=== PATIENT | male | born 1940 | race Caucasian/White ===

== ENCOUNTER 2023-09-11 06:54 | Day surgery (SDC) | payer MEDICARE, SELFPAY ==
[2023-09-11] VITALS (19 sets, daily range): BP systolic 122–164; BP diastolic 56–94; BMI 24.6
[2023-09-11 07:35] LABS: Hematocrit 41.1 % (39.0-52.0); Mean Corp Hgb Conc. 34.1 g/dL (33.0-37.0); Mean Corpuscular Volume 93.8 fL (80.0-94.0); Mean Platelet Volume 9.8 fL (7.4-10.4); Platelet Count 335 10^3/uL (130-400); Red Blood Cell Count 4.38 10^6/uL (4.70-6.10); Red Cell Dist. Width 12.7 % (11.5-14.5); White Blood Cell Count 8.1 10^3/uL (4.8-10.8)
[2023-09-11 07:51] LABS: Blood Urea Nitrogen 21 mg/dl (9-20); Calcium 9.3 mg/dl (8.4-10.2); Carbon Dioxide 30 mmol/L (22-30); Chloride 105 mmol/L (98-107); Glucose 93 mg/dl (70-99); Potassium 4.1 mmol/L (3.5-5.1); Sodium 139 mmol/L (135-145); eGFR > 60.00
[2023-09-11 07:54] LABS: INR 1.06; PT 13.7 Sec (11.4-14.6)
[2023-09-11 07:55] LABS: APTT 37.1 Sec (23.4-35.0)
--- NOTE | 2023-09-11 08:32 | W.SUR.PREOP ---
Pre-Operative Surgical Note
-
I have examined this patient prior to the performance of the scheduled procedure.
The patient's condition is unchanged from the time of the current History and
Physical and the patient is able to undergo the scheduled procedure.
--- NOTE | 2023-09-11 09:22 | W.SUR.POST ---
Surgical Immediate Post Op
Note
Pre Op Diagnosis: PAD
Post Op Diagnosis: PAD
Procedure Performed: Diagnostic RLE angiogram
Primary Surgeon: Radha
Anesthesia: local and sedation
Estimated Blood Loss: <2cc
Fluids: see anesthesia flow sheet
Drains/Shunts: same
Specimens/Cultures: none
Doppler/Duplex/Angio (Y/N): Y
Complications: none
Operative Findings: No endovascular options at this time
[2023-09-11 10:32] LABS: AST (SGOT) 30 U/L (17-59); Alkaline Phosphatase 101 U/L (38-126); Direct Bilirubin 0.6 mg/dl (0.0-0.4); Total Bilirubin 0.6 mg/dl (0.2-1.3)
[2023-09-11 11:09] LABS: ALT (SGPT) 22 U/L (0-50)
--- NOTE | 2023-09-11 14:32 | OR.RPT ---
Operative Report
Operative Report
Date of Operation: 09/11/2023
Pre Op Diagnosis: Critical limb ischemia right lower extremity
Post Op Diagnosis: Critical limb ischemia right lower extremity
Procedure:
1.) Selective catheterization second-order lower extremity artery
2.) Diagnostic aortobiiliac arteriogram
3.) Diagnostic right lower extremity arteriogram
4.) Ultrasound-guided percutaneous access of the left common femoral artery
Surgeon: Kb Garcia III, MD
Whip Operator: Satnam Price MD PGY-1
Anesthesia: Sedation with local
Complications: None
Estimated Blood Loss: Minimal
History and Indications for Procedure: 83-year-old male with critical limb threatening ischemia of the right lower extremity manifested by a nonhealing right third toe ulcer
Procedure in Detail: Rony Steel was correctly identified and placed supine on the operating table. After adequate induction of anesthesia the bilateral groins were prepped and draped in the usual sterile fashion. A timeout was performed with the
nursing and anesthesia staff confirming the patient's identity as well as the nature and laterality of the procedure.
The left common femoral artery was identified under ultrasound guidance. The artery was patent but heavy luminal calcified plaque was identified. The superior and inferior aspects of the femoral head were identified with radiographic guidance and
marked at the skin level. The proposed puncture site was infiltrated with local anesthesia. We saved a copy of the ultrasound image to the medical record. Under ultrasound guidance we accessed the left common femoral artery with a micropuncture
needle and upsized to a 5 Fr sheath over a Bentson wire. The wire and a ShephPoly Adaptive hook flush catheter were advanced into the distal abdominal aorta and a diagnostic aorto-biiliac arteriogram was performed:
AORTO-ILIAC ARTERIOGRAM:
Aorta: Diffusely heavily calcified. No significant stenosis identified
Right common iliac artery: Heavily calcified. Calcified plaque in the mid common iliac artery contributing to a moderate to high-grade stenosis
Right external iliac artery: Patent, heavily calcified
Left common iliac artery: Patent stent. Heavily calcified
Left external iliac artery: Patent
Under roadmap guidance using a Glidewire and the ShepherIAT-Auto hook catheter we selected the right common iliac artery and then the external iliac artery. A catheter was tracked up and over the aortic bifurcation and placed in the distal external iliac
artery. A diagnostic right lower extremity arteriogram was then performed which demonstrated the following:
RIGHT LOWER EXTREMITY:
Common femoral artery: Patent. Bulky heavily calcified plaque in the common femoral artery contributing to significant stenosis.
Profunda femoral artery: Patent with no stenosis identified
Superficial femoral artery: Patent in the proximal and mid segments with scattered areas of heavily calcified bulky luminal plaque contributing to areas of high-grade stenosis and sluggish flow throughout. Distal segment appears occluded.
Popliteal artery: Popliteal artery above the knee fills via profunda femoral collaterals. Heavily calcified and diseased above-knee segment. Patent behind the knee. Below the knee segment patent with no stenosis identified
Anterior tibial artery: Patent. Slow flow lagging behind the posterior tibial and peroneal arteries. Appears to occlude at the ankle with no flow to the dorsalis pedis artery.
Tibioperoneal trunk: Patent with no stenosis identified
Peroneal artery: Patent
Posterior tibial artery: Dominant tibial artery runoff. Continues across the ankle to form plantar branches in the foot
Satisfied with this diagnostic result we concluded the procedure.
The patient tolerated the procedure well and was taken to the recovery area in stable condition.
Attestation: I was present and responsible for the entire procedure.
Signed:
Kb Garcia III, MD
[facility]
[phone] (ojmb)
== END 2023-09-11 15:00 | disposition home or self-care (01) ==
LOC: CATH 06:54
PROVIDERS: ATTENDING PHYSICIAN Surgery Vascular Surgery; FAMILY PHYSICIAN Internal Medicine; OTHER PHYSICIAN Nuclear Medicine Nuclear Cardiology
DX: I70.235 Atherosclerosis of native arteries of right leg with ulceration of other part of foot (principal); L97.519 Non-pressure chronic ulcer of other part of right foot with unspecified severity; Z95.820 Peripheral vascular angioplasty status with implants and grafts
CPT/HCPCS: 36246; 75625; 75716; 76937; 80053; 82248; 85027; 85610; 85730; 86850; 86900; 86901; 93970; C1894; Q9967

== ENCOUNTER → 2023-10-28 15:24 | Outpatient (REF) | payer MEDICARE, SELFPAY | LOC: HWRAD 15:24 | PROVIDERS: ATTENDING PHYSICIAN Internal Medicine | DX: S91.309A Unspecified open wound, unspecified foot, initial encounter (principal) | CPT/HCPCS: 73630 ==

== ENCOUNTER → 2023-12-30 07:00 | Outpatient (REF) | payer MEDICARE, SELFPAY | LOC: HWRCS 07:00 | PROVIDERS: ATTENDING PHYSICIAN Nuclear Medicine Nuclear Cardiology; FAMILY PHYSICIAN Internal Medicine | DX: I42.9 Cardiomyopathy, unspecified (principal) | CPT/HCPCS: 93306 ==

== ENCOUNTER → 2024-03-17 08:23 | Outpatient (REF) | payer MEDICARE, SELFPAY | LOC: RAD 08:23 | PROVIDERS: ATTENDING PHYSICIAN Surgery Vascular Surgery | DX: I73.9 Peripheral vascular disease, unspecified (principal) | CPT/HCPCS: 93922; 93978 ==

== ENCOUNTER → 2024-08-23 08:56 | Outpatient (REF) | payer MEDICARE, SELFPAY | LOC: RAD 08:56 | PROVIDERS: ATTENDING PHYSICIAN Internal Medicine | DX: R10.9 Unspecified abdominal pain (principal); R14.0 Abdominal distension (gaseous) | CPT/HCPCS: 71101; 72072; 76700 ==

== ENCOUNTER → 2024-10-10 12:46 | Outpatient (REF) | payer MEDICARE, SELFPAY | LOC: HWRAD 12:46 | PROVIDERS: ATTENDING PHYSICIAN Nurse Practitioner Adult Health | DX: R30.9 Painful micturition, unspecified (principal); R31.29 Other microscopic hematuria | CPT/HCPCS: 76770 ==

== ENCOUNTER → 2024-11-29 08:23 | Outpatient (REF) | payer MEDICARE, SELFPAY | LOC: DHVS 08:23 | PROVIDERS: ATTENDING PHYSICIAN Surgery Vascular Surgery; FAMILY PHYSICIAN Internal Medicine | DX: I73.9 Peripheral vascular disease, unspecified (principal) | CPT/HCPCS: 93922 ==

== ENCOUNTER 2025-05-04 09:48 | Emergency (ER) | payer MEDICARE, SELFPAY ==
[2025-05-04 09:56] VITALS: BP 169/66
[2025-05-04 10:00] VITALS: BP 162/86; BMI 23.7
--- NOTE | 2025-05-04 10:41 | ED.GENMED ---
History of Present Illness
<Matthew Clinton MD, Resident - Last Filed: 05/04/25 11:48>
General
Chief Complaint: Musculo-Skeletal Complaint
Source: patient
Exam Limitations: none
Time Seen by Provider: 05/04/25 09:51
History of Present Illness
History of Present Illness:
Patient is an 85-year-old male who has been having intermittent tingling bilaterally in both his hands more so on the right since 1 month. The sensation has been constant as has not gotten progressively worse. he does not have numbness or
tingling in his bilateral lower extremities. 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 No associated weakness of the extremities. No fever, chills, nausea, vomiting, palpitations, slurred speech,
facial drooping, inability to ambulate, weight loss, neck pain. Ex-smoker quit 20 years ago, occasionally drinks alcohol. Works out about 5 times a week.has had a previous medical history of myocardial infarction, takes atorvastatin and aspirin.
Past History
<Matthew Clinton MD, Resident - Last Filed: 05/04/25 11:48>
Past History
ED Past Medical History: None
ED Past Surgical History: None
Social History
Tobacco: Non-smoker
Alcohol: None
Drug: None
Personal:
Living: with family
Phy Exam
<Matthew Clinton MD, Resident - Last Filed: 05/04/25 11:48>
General Physical Exam
General Presentation: well appearing
General Skin: warm
General Habitus: normal
General Mental: alert
Cardiovascular Exam
Cardiovascular Exam: regular rate/rhythm, no edema, no murmur and normal peripheral pulses
Pulmonary Exam
Pulmonary Exam: lungs clear and no respiratory distress
Gastrointestinal Exam
Gastrointestinal Exam: normal bowel sounds, non tender, soft and non distended
Neurological Exam
Neurological Exam: alert and oriented x3
Musculoskeletal Exam
Musculoskeletal Exam: full ROM
Course
<Matthew Clinton MD, Resident - Last Filed: 05/04/25 11:48>
Orders/Labs/Results
Orders:
Orders
05/04/25 10:37
Electrocardiogram (*1) Urgent
Reason for Study: TIA/Stroke
EKG- Treatment ONCE
05/04/25 11:01
CBC/With Diff [Complete Blood Count/With Diff] Urgent
CMP [Comprehensive Metabolic Panel] Urgent
Troponin I Urgent
Abnormal Lab Results
05/04/25
11:01
RBC 4.16 L 10^6/uL
(4.70-6.10)
MCV 96.6 H fL
(80.0-94.0)
MCH 32.0 H pg
(27.0-31.0)
MPV 10.6 H fL
(7.4-10.4)
Absolute Monos (auto) 0.7 H 10^3/uL
(0.1-0.6)
Carbon Dioxide 31 H mmol/L
(22-30)
BUN 22 H mg/dl
(9-20)
05/04/25 11:01
05/04/25 11:01
Vital Signs
Initial and Last Documented VS:
Initial Vital Signs
BP
169/66
05/04/25 09:56
Last Documented Vital Signs
Temp Pulse Resp BP Pulse Ox
98.9 F 76 19 162/86 99
05/04/25 10:00 05/04/25 10:00 05/04/25 10:00 05/04/25 10:00 05/04/25 10:43
<Kasi Resendiz, DO - Last Filed: 05/04/25 10:46>
Orders/Labs/Results
Orders:
Orders
05/04/25 10:37
Electrocardiogram (*1) Urgent
Reason for Study: TIA/Stroke
EKG- Treatment ONCE
05/04/25 11:01
CBC/With Diff [Complete Blood Count/With Diff] Urgent
CMP [Comprehensive Metabolic Panel] Urgent
Troponin I Urgent
Abnormal Lab Results
05/04/25
11:01
RBC 4.16 L 10^6/uL
(4.70-6.10)
MCV 96.6 H fL
(80.0-94.0)
MCH 32.0 H pg
(27.0-31.0)
MPV 10.6 H fL
(7.4-10.4)
Absolute Monos (auto) 0.7 H 10^3/uL
(0.1-0.6)
Carbon Dioxide 31 H mmol/L
(22-30)
BUN 22 H mg/dl
(9-20)
05/04/25 11:01
05/04/25 11:01
Vital Signs
Initial and Last Documented VS:
Initial Vital Signs
BP
169/66
05/04/25 09:56
Last Documented Vital Signs
Temp Pulse Resp BP Pulse Ox
98.9 F 76 19 162/86 99
05/04/25 10:00 05/04/25 10:00 05/04/25 10:00 05/04/25 10:00 05/04/25 10:43
<Matthew Clinton MD, Resident - Last Filed: 05/04/25 11:48>
MDM/Problems Addressed
Differential Diagnosis Includes:
Acute coronary syndrome, Transient ischemic attack, stroke, ID, cervical radiculopathy, carpal tunnel syndrome
MDM/Problems Addressed:
- CBC: unremarkable
- CMP: unremarkable
- EKG: sinus rhythm with sinus arrhythmia
- troponin I- within normal limits
- Will discharge patient home. F/u with pcp within 5 days.
<Matthew Clinton MD, Resident - Last Filed: 05/04/25 11:48>
*Pulse Oximetry
SaO2: 99
Oxygen Mode of Delivery: Room air
Patient hypoxic: no
*Critical Care Note
Total Time (30-74mins, 75-104mins- exclusive of procedures): Not Applicable
ED Attending Note
<Matthew Clinton MD, Resident - Last Filed: 05/04/25 11:48>
-
Portions of this chart may have been created with voice recognition software.� Occasional wrong word or��sound alike� substitutions may have occurred due to the inherent limitations of voice recognition software.
<Kasi Resendiz, DO - Last Filed: 05/04/25 10:46>
ED Attending Note
Patient seen and examined by attending physician: Yes
I performed a history and physical exam of patient and discussed management with resident, I reviewed resident's note and agree with documented findings and plan of care.: Yes
ED Attending Note:
I have seen and evaluated the patient with a [id number] encounter. I have spoken to the resident and involved in the medical history, the physical exam, medical decision making.
Evaluation and management service: agree unless noted differently below.
Results interpretation: agree unless noted differently below.
Focused HPI: 85-year-old male presenting for resolved tingling in his right arm. Patient noted that both arms were affected earlier this morning but he attributes this to the cold weather. Patient acknowledges that he was not appropriately
dressed. Due to the ongoing symptoms, EMS were called. As soon as the patient went into the warm EMS car, all symptoms resolved. Patient denies headache or neck pain. Denies chest pain or shortness of breath. Symptoms are not worse with exertion
Physical exam: Sitting bed comfortably. No focal neurodeficits noted. Heart regular rate and rhythm.
Medical Decision Making: We discussed the likelihood of this being cold weather related but discussed that I cannot truly rule out acute coronary syndrome or possibly TIA. Patient does acknowledge this and feels comfortable going home if his EKG
and screening blood work including troponin are negative. We did discuss having this we seen by his PCP and patient acknowledges this
Discharge Plan
Departure
Patient Disposition: Home (Routine Discharge)
Date of Disposition: 05/04/25
Time of Disposition: 11:42
Patient with high blood pressure during this ER visit?: Yes
Condition: Fair
Discharge Problem:
Numbness and tingling in both hands
Instructions: Hand Numbness
Prescriptions:
No Action
clonazepam 0.5 MG tablet
0.25 mg PO HS
meloxicam 15 mg Tablet
15 mg PO PRN PRN (Reason: pain)
epinephrine [EpiPen 2-Pool] 0.3 mg/0.3 mL Auto-Injector
atorvastatin 10 mg Tablet
10 mg PO QPM Qty: 90 0RF
aspirin [Children's Aspirin] 81 mg Tablet,Chewable
81 mg PO DAILY Qty: 90 0RF
Referrals:
Xavier Gutierrez MD [Family Provider, Internal Medicine]
Activity Restrictions/Additional Instructions:
You were evaluated for bilateral numbness and tingling in your hands. Troponin normal, CBC, and CMP normal. Please follow up with PCP in 5 days. Please return to ED if any increase in tingling, numbness, fever, chills, visual changes, vomiting,
nausea, slurring of speech, headache, shortness of breath, neck pain.
1. Please schedule a follow up appointment as directed. Call first thing tomorrow morning to make an appointment.
2. If indicated, please take your medications as instructed and indicated on discharge paperwork.
3. If any of your symptoms do not improve, or persist, or become more severe within 6-12 hours, please return to the emergency department for further care.
4. Please return to the emergency department if you develop a headache, neck pain/stiffness, fever greater than 100.4F, chest pain, shortness of breath, persistent nausea, vomiting, slurred speech, difficulty walking, numbness/tingling, weakness,
signs of infection or any other symptoms that are worrisome to you.
Please call [phone] if you have any questions
Interventions
Interventions:
*Risk Screen - Suicide Last Done: 05/04/25 10:00
*General Assessment Last Done: 05/04/25 10:00
*Neglect/Abuse Screening Last Done: 05/04/25 10:00
*ED- Fall Risk Assessment Last Done: 05/04/25 10:00
*ED COVID-19 Vaccine History Last Done: 05/04/25 10:00
*ED Influenza Vaccine History Last Done: 05/04/25 10:00
ED-Musculoskeletal Assessment Last Done: 05/04/25 10:00
Discharge Date and Time
Print Language: PERSIAN
[2025-05-04 11:00] VITALS: BP 141/80
[2025-05-04 11:09] LABS: Hematocrit 40.2 % (39.0-52.0); Hemoglobin 13.3 g/dL (13.0-18.0); Mean Corp Hgb Conc. 33.1 g/dL (33.0-37.0); Mean Corpuscular Volume 96.6 fL (80.0-94.0); Nucleated Red Blood Cells % 0 % (-); Platelet Count 281 10^3/uL (130-400); Red Cell Dist. Width 13.1 % (11.5-14.5)
[2025-05-04 11:33] LABS: Troponin I < 0.012 ng/ml
[2025-05-04 11:35] LABS: ALT (SGPT) 18 U/L (0-50); AST (SGOT) 27 U/L (17-59); Albumin 4.2 g/dl (3.5-5.0); Alkaline Phosphatase 74 U/L (38-126); Blood Urea Nitrogen 22 mg/dl (9-20); Calcium 9.6 mg/dl (8.4-10.2); Carbon Dioxide 31 mmol/L (22-30); Chloride 104 mmol/L (98-107); Estimated Creatinine Clearance 72 ml/min; Glucose 85 mg/dl (70-99); Potassium 4.5 mmol/L (3.5-5.1); Sodium 139 mmol/L (135-145); Total Protein 6.9 g/dl (6.3-8.2); eGFR > 60.00
== END 2025-05-04 12:07 | disposition home or self-care (01) ==
LOC: EMR 09:48
PROVIDERS: EMERGENCY PHYSICIAN Student in an Organized Health Care Education/Training Program; FAMILY PHYSICIAN Internal Medicine
DX: R20.2 Paresthesia of skin (principal); R03.0 Elevated blood-pressure reading, without diagnosis of hypertension; I25.2 Old myocardial infarction; Z79.82 Long term (current) use of aspirin; Z87.891 Personal history of nicotine dependence
CPT/HCPCS: 99284; 80053; 84484; 85025; 93005